=== PATIENT | female | born 1995 | race Caucasian/White ===

== ENCOUNTER 2018-02-02 21:00 | Emergency (ER) | payer OTHER, SELFPAY ==
[2018-02-02 21:01] VITALS: BP 127/85; PULSE 90; RESP 16; TEMP 36.6; O2SAT 98; BMI 27.2
--- NOTE | 2018-02-02 21:10 | RAD_ITS ---
STUDY: X-RAY - RIGHT HAND, ATTENTION THIRD FINGER REASON FOR EXAM: Female, 22 years old. Smashing injury pain TECHNIQUE: 3 view(s) of the finger were obtained. COMPARISON: None. FINDINGS: Normal metacarpal head. Normal metacarpophalangeal joint. Normal proximal phalanx. Normal middle phalanx. Normal distal phalanx. Normal proximal interphalangeal joint. Normal distal interphalangeal joint. RAD/Finger(s) Min 2 Views IMPRESSION: Normal x-ray examination of the finger. Electronically Signed: Sen Sharp DO at 21:21 EDT Tel [phone], Service support ,
--- NOTE | 2018-02-02 22:22 | ED.VISSUMM ---
- ER Visit Summary Date of Service: 02/02/18 Chief Complaint: Right third finger injury History of Present Illness: The patient is a 22 F who shot her right third finger in the door 3 days ago. Patient had mild pain to the area but complains of numbness behind the fingernail. She wanted an x-ray to be sure it was not broken. She is right-hand dominant. Physical Examination: Vital signs unremarkable. Right upper extremity examination reveals mild tenderness to the distal right third finger. No significant edema. She has full range of motion. There is no subungual hematoma. Abrasions are noted to the skin just lateral to the base of the nail bilaterally. Normal cap refill is noted distally. Test Results: Right third finger x-ray reveals no fracture. Emergency Department Course and Treatment: Test results discussed with the patient. I advised her that she likely continues to the nerve and this will take some time to come back. Patient is encouraged to use her hand to encourage healing. There is no sign of secondary infection with the abrasions. Treatment Plan: [] Disposition: Discharge Impression: Crush injury right third finger This note was generated with [employer] dictation software. It may contain incorrect words, spelling, and punctuation that were not noted in review of the chart prior to signing ED Disposition - Plan for ED Patient: Disposition: Home or Assisted Living Chief Complaint: Upper Extremity Injury Instructions: ED Crush Injury Finger No Fx Referrals: [facility] Doctor,Out of [Primary Care Provider] -
[2018-02-02 22:37] VITALS: RESP 16
== END 2018-02-02 22:37 | disposition home or self-care (01) ==
PROVIDERS: Emergency Provider Emergency Medicine
DX: S67.192A Crushing injury of right middle finger, initial encounter (principal); W23.0XXA Caught, crushed, jammed, or pinched between moving objects, initial encounter; Y93.9 Activity, unspecified; E06.3 Autoimmune thyroiditis
CPT/HCPCS: 73140; 99282